=== PATIENT | female | born 1945 | race Caucasian/White ===

== ENCOUNTER 2016-06-20 08:03 | Emergency (ER) | payer MEDICARE, OTHER ==
[~2016-06-20] VITALS: Ht 154.9 cm; Wt 58.5 kg
[~2016-06-20 08:03] MED LIST: ALBU0.086 INH; ALBU1AER INH; CIPR500T4 PO; LIPI10TA PO; MEDR4PAK3 PO; NEBUMIS6 INH
[2016-06-20 08:15] VITALS: BP 148/78; PULSE 85; RESP 16; TEMP 100; O2SAT 94
[2016-06-20] MEDS ORDERED: ONDANSETRON ODT 4 MG TAB PO ONE (08:30)
[2016-06-20] MEDS ORDERED: ACETAMINOPHEN 325 MG TAB PO ONE (08:30)
--- NOTE | 2016-06-20 08:34 | PD ---
HPI Chief Complaint: Cold / Flu Symptoms Time Seen by Provider: 08:20 Travel History International Travel<30 days: No Contact w/Intl Traveler<30days: No Traveled to known affect area: No History of Present Illness HPI 71 y/o female presents with cough and congestion and 3 episodes of nonbloody diarrhea and one episode of vomiting that started this morning. She denies other concurrent complaints. She denies specific sick contacts but she states she did clean her house a couple days ago that was very dirty and does not know if that is related. She states that she feels worse when she moves around. She denies other modifying factors. She denies specific sick contacts. She states she took her thyroid home medication and was able to keep that down prior to arrival. PFSH Past Medical History Asthma: Yes Diminished Hearing: No GERD: Yes LMP: MENOPAUSAL Past Surgical History Cholecystectomy: Yes Social History Alcohol Use: No Tobacco Use: No Substance Use: No Allergies-Medications (Allergen,Severity, Reaction): Coded Allergies: Benadryl (Verified Allergy, Mild, 06/20/16) Erythromycin (Verified Allergy, Mild, 06/20/16) Penicillin (Verified Allergy, Mild, 06/20/16) Shellfish (Verified Allergy, Mild, 06/20/16) Sulfa (Verified Allergy, Mild, 06/20/16) Uncoded Allergies: MYCINS (Adverse Reaction, Mild, STOMACH UPSET, 06/20/16) Reported Meds & Prescriptions Reported Meds & Active Scripts Active Prednisone 50 Mg Tab 50 Mg PO DAILY Ventolin Hfa 18 GM Inh (Albuterol Sulfate) 90 Mcg/Act Aer 2 Puff INH Q4-6H PRN Reported Albuterol Neb (Albuterol Sulfate) 2.5 Mg/0.5 Ml Neb 2.5 Mg NEB Q4HR NEB PRN Note: The Albuterol Sulfate Inhalation Solution is concentrated and must be diluted. Read complete instructions carefully before using. Atorvastatin (Atorvastatin Calcium) 10 Mg Tab 10 Mg PO HS Synthroid (Levothyroxine Sodium) 50 Mcg Tab 50 Mcg PO DAILY Proair Hfa 8.5 GM Inh (Albuterol Sulfate) 90 Mcg/Act Aer 2 Puff INH Q4-6H PRN 108 mcg/actuation Review of Systems Except as stated in HPI: all other systems reviewed are Neg Physical Exam Narrative GENERAL: Well-nourished, well-developed patient. Well-appearing SKIN: Warm and dry. HEAD: Normocephalic and atraumatic. EYES: No injection or drainage. ENT: No nasal drainage noted. Mucous membranes moist NECK: Supple, trachea midline. No meningeal signs CARDIOVASCULAR: Regular rate and rhythm RESPIRATORY: Breath sounds equal bilaterally. No accessory muscle use. GASTROINTESTINAL: Abdomen soft, non-tender, nondistended. EXTREMITIES: No edema. NEUROLOGICAL: Awake and alert. Motor and sensory grossly within normal limits. Normal speech. Data Data Last Documented VS Vital Signs Date Time Temp Pulse Resp B/P Pulse Ox O2 Delivery O2 Flow Rate FiO2 06/20/16 10:11 79 16 100/59 96 06/20/16 08:15 100.0 96% on room air with good waveform on arrival into room Orders Chest, Pa & Lat (06/20/16 ) Influenzae A/B Antigen (06/20/16 08:27) Acetaminophen (Tylenol) (06/20/16 08:30) Ondansetron Odt (Zofran Odt) (06/20/16 08:30) Albuterol-Ipratropium Neb (Duoneb Neb) (06/20/16 09:30) MDM Medical Decision Making Medical Screen Exam Complete: Yes Emergency Medical Condition: Yes Medical Record Reviewed: Yes (past history confirmed) Interpretation(s) cxr no acute pneumonia Differential Diagnosis Pneumonia, URI, gastroenteritis Narrative Course Will check influenza, chest x-ray and dose with Zofran and Tylenol and reevaluate no emesis here, agrees to hold on antibiotics given allergies and already with GI symptoms, she states one of her family members she just talked with also has similar symptoms, she denies any new complaints and states that she is feeling better. happy with care, all questions answered. Patient knows that follow up is incumbent on them and to return to the emergency room immediately if new or worsening symptoms develop. Patient given strict return precautions, vitals reviewed and are normal, agrees to further workup as an outpatient. Diagnosis Primary Impression: Upper respiratory infection Qualified Code: J06.9 - Upper respiratory tract infection, unspecified type Patient Instructions: General Instructions Additional Instructions: return as needed, follow with primary tommorrow, zofran as needed, alternate tylenol and motrin Med/Other Pt SpecificInfo: Prescription(s) given Scripts Prednisone 50 Mg Tab50 Mg PO DAILY #5 TAB Prov:Melina Main MD 06/20/16 Albuterol 18 GM Inh (Ventolin Hfa 18 GM Inh)90 Mcg/Act Aer2 Puff INH Q4-6H PRN ( SHORTNESS OF BREATH) #1 INHALER Prov:Melina Main MD 06/20/16 Disposition: 01 DISCHARGE HOME Condition: Stable Melina Main MD Jun 20, 2016 08:34
[2016-06-20] MEDS ORDERED: ATOR10TA15 PO (09:15)
[2016-06-20] MEDS ORDERED: ALBUAER3 INH (09:15)
[2016-06-20] MEDS ORDERED: LEVO.05 PO (09:15)
[2016-06-20] MEDS ORDERED: ALBU.5I NEB (09:15)
[2016-06-20] MEDS ORDERED: RESP: ALBUTEROL 2.5 MG/IPRATROPIUM 0.5 MG NEB (SCH) NEB ONE (09:30)
--- NOTE | 2016-06-20 10:02 | RADHPO ---
EXAM DATE/TIME: 06/20/2016 08:46 [facility] COMPARISON: CHEST PA & LAT, September 02, 2014, 13:17. INDICATIONS: Cough/nausea/vomiting/flu like symptoms. MEDICAL HISTORY: Gastroesophageal reflux disease. Asthma. SURGICAL HISTORY: Cholecystectomy. ENCOUNTER: Initial ACUITY: 1 day PAIN SCORE: 5/10 LOCATION: Chest FINDINGS: Degenerative changes are noted throughout the thoracolumbar spine. The heart and mediastinal structu res are normal. The pulmonary vascular pattern is normal. Minimal atelectasis is noted within the l eft lung base. CONCLUSION: 1. Minimal left basilar atelectasis. 2. Degenerative changes and scoliosis of the thoracolumbar spine. Walter Hussein MD on June 20, 2016 at 9:57 Board Certified Radiologist. This report was verified electronically.
[2016-06-20] MEDS ORDERED: VENTAER INH (10:05)
[2016-06-20] MEDS ORDERED: PRED50 PO (10:05)
[2016-06-20 10:11] VITALS: BP 100/59
== END 2016-06-20 10:28 | disposition home or self-care (01) ==
LOC: PHED 08:03
DX: J06.9 Acute upper respiratory infection, unspecified (principal)
CPT/HCPCS: 71020; 87804; 94664; 99284